=== PATIENT | female | born 1970 | race African-American/Black ===

== ENCOUNTER → 2016-11-18 | Outpatient (CLI) | payer OTHER | LOC: RAD 08:26 | DX: Z12.31 Encounter for screening mammogram for malignant neoplasm of breast (principal); N63 Unspecified lump in breast ==

== ENCOUNTER → 2016-11-20 | Outpatient (CLI) | payer OTHER | LOC: ULTRA 08:15 | DX: N63 Unspecified lump in breast (principal) ==

== ENCOUNTER → 2019-04-21 | Outpatient (CLI) | payer OTHER | LOC: RAD 07:51 | DX: Z12.31 Encounter for screening mammogram for malignant neoplasm of breast (principal) ==

== ENCOUNTER → 2019-04-27 | Outpatient (CLI) | payer OTHER | LOC: ULTRA 01:37 | DX: N63.23 Unspecified lump in the left breast, lower outer quadrant (principal); N63.11 Unspecified lump in the right breast, upper outer quadrant ==

== ENCOUNTER → 2019-06-30 | Outpatient (CLI) | payer OTHER | LOC: ULTRA 09:19 | DX: N83.202 Unspecified ovarian cyst, left side (principal); N93.8 Other specified abnormal uterine and vaginal bleeding; D25.9 Leiomyoma of uterus, unspecified; N85.2 Hypertrophy of uterus ==

== ENCOUNTER → 2020-04-24 | Outpatient (CLI) | payer OTHER | LOC: RAD 09:00 | PROVIDERS: ATTEND Family Medicine | DX: Z12.31 Encounter for screening mammogram for malignant neoplasm of breast (principal) ==

== ENCOUNTER → 2021-02-26 | Outpatient (CLI) | payer OTHER ==
[2021-02-26 09:09] LABS: BASOPHILS 1.1 % (0.0-2.0); EOSINOPHILS 2.1 % (0.0-3.0); HEMATOCRIT 31.9 % (37.0-47.0); LYMPHOCYTES 32.1 % (24.0-44.0); MCH 23.4 pg (26.0-34.0); MCHC 31.2 g/dL (28.0-37.0); MONOCYTES 10.3 % (1.0-8.0); PLATELET COUNT 391 thou/uL (150-400); POLYS 54.4 % (36.0-66.0); RBC 4.26 mil/uL (4.20-5.00); RDW 16.8 % (10.5-14.5); WBC 3.7 thou/uL (4.0-11.0)
[2021-02-26 09:22] LABS: ALBUMIN 3.5 g/dL (3.4-5.0); CALCIUM 8.6 mg/dL (8.5-10.1); MAGNESIUM 1.7 mg/dL (1.8-2.4); POTASSIUM 3.7 mmol/L (3.5-5.1); TOTAL BILIRUBIN 0.3 mg/dL (0.2-1.0); TOTAL PROTEIN 7.4 g/dL (6.4-8.2)
[2021-02-28 18:53] LABS: % SATURATION 8 % (20-39); IRON 33 ug/dL (50-170); TIBC 412 ug/dL (250-450)
== END ==
LOC: LAB 07:20
PROVIDERS: ATTEND Family Medicine
DX: I10 Essential (primary) hypertension (principal)

== ENCOUNTER → 2021-04-19 | Outpatient (CLI) | payer OTHER ==
[2021-04-19 09:25] LABS: ABSOLUTE NEUTROPHILS 2.9 thou/uL (1.4-8.2); EOSINOPHILS 4.2 % (0.0-3.0); HEMATOCRIT 34.3 % (37.0-47.0); HEMOGLOBIN 10.7 gm/dL (12.0-15.0); LYMPHOCYTES 30.9 % (24.0-44.0); MCH 24.9 pg (26.0-34.0); MCHC 31.2 g/dL (28.0-37.0); MCV 79.7 fL (80.0-100.0); MONOCYTES 10.1 % (1.0-8.0); PLATELET COUNT 406 thou/uL (150-400); POLYS 53.8 % (36.0-66.0); RDW 20.6 % (10.5-14.5); WBC 5.4 thou/uL (4.0-11.0)
[2021-04-19 09:51] LABS: % SATURATION 6 % (20-39); IRON 26 ug/dL (50-170); TIBC 427 ug/dL (250-450)
[2021-04-19 09:58] LABS: ALBUMIN 3.5 g/dL (3.4-5.0); CALCIUM 8.5 mg/dL (8.5-10.1); CREATININE 0.8 mg/dL (0.6-1.0); MAGNESIUM 2.1 mg/dL (1.8-2.4); POTASSIUM 4.2 mmol/L (3.5-5.1); TOTAL BILIRUBIN 0.4 mg/dL (0.2-1.0); TOTAL PROTEIN 7.4 g/dL (6.4-8.2)
[2021-04-19 12:02] LABS: ANISOCYTOSIS 2+; PLATELET ESTIMATE NORMAL
== END ==
LOC: LAB 07:26
PROVIDERS: ATTEND Family Medicine
DX: D50.9 Iron deficiency anemia, unspecified (principal); E87.6 Hypokalemia; E83.42 Hypomagnesemia

== ENCOUNTER → 2021-05-01 | Outpatient (CLI) | payer OTHER | LOC: RAD 13:36 | PROVIDERS: ATTEND Family Medicine | DX: Z12.31 Encounter for screening mammogram for malignant neoplasm of breast (principal) ==